=== PATIENT | female | born 1995 | race African-American/Black ===

== ENCOUNTER 2020-08-17 14:07 | Emergency (ER) | payer BC ==
[2020-08-17 14:24] VITALS: BP 128/82; PULSE 99; BMI 40.1
[2020-08-17 14:29] VITALS: TEMP 98.8
== END 2020-08-17 15:08 | disposition home or self-care (01) ==
LOC: JERFT 14:07
DX: H60.92 Unspecified otitis externa, left ear (principal)
CPT/HCPCS: 99282-25